=== PATIENT | male | born 1985 | race Caucasian/White ===

== ENCOUNTER 2016-04-21 10:21 | Emergency (ER) | payer BC ==
[~2016-04-21] VITALS: Ht 172.7 cm; Wt 85.0 kg
[2016-04-21 10:24] VITALS: BP 155/91; PULSE 81; RESP 22
[2016-04-21] MEDS ORDERED: XANA1TAB2 PO (10:38)
[2016-04-21 10:43] LABS: BASOPHIL # 0.1 TH/MM3 (0-0.2); BASOPHIL % 0.6 % (0.0-2.0); EOSINOPHIL # 0.2 TH/MM3 (0-0.4); EOSINOPHIL % 1.9 % (0.0-4.0); HEMATOCRIT 42.2 % (39.0-51.0); HEMO FLAGS DIFF FINAL; LYMPH % 21.1 % (9.0-44.0); LYMPHOCYTE # 2.3 TH/MM3 (1.0-4.8); MEAN CELL VOLUME 85.3 FL (80.0-100.0); MEAN CORPUSCULAR HEMOGLOBIN 29.7 PG (27.0-34.0); MEAN CORPUSCULAR HGB CONC 34.8 % (32.0-36.0); MONO % 12.2 % (0.0-8.0); NEUT % 64.2 % (16.0-70.0); PLATELET COUNT 291 TH/MM3 (150-450); RED BLOOD COUNT 4.94 MIL/MM3 (4.50-5.90); RED CELL DISTRIBUTION WIDTH 12.4 % (11.6-17.2); WHITE BLOOD COUNT 10.9 TH/MM3 (4.0-11.0)
[2016-04-21 10:56] LABS: ALT (GPT) 34 U/L (12-78); ANION GAP 6 MEQ/L (5-15); AST (GOT) 17 U/L (15-37); BICARBONATE 30.1 MEQ/L (21.0-32.0); BLOOD UREA NITROGEN 13 MG/DL (7-18); CHLORIDE 104 MEQ/L (98-107); GLOMERULAR FILTRATION RATE 67 ML/MIN (>89); POTASSIUM 3.3 MEQ/L (3.5-5.1); SODIUM (NA) 140 MEQ/L (136-145)
[2016-04-21 10:58] LABS: ALKALINE PHOSPHATASE 83 U/L (45-117)
[2016-04-21] MEDS ORDERED: SUBO8MIS SL (11:48)
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
[2016-04-21] MEDS: SULFAMETHOXAZOLE-TRIMETHOPRIM DS 800-160 MG TAB PO SCH ×2 (13:05→20:53)
[2016-04-21 14:24] LABS: AMPHETAMINE, URINE POS (NEG); BARBITURATES, URINE NEG (NEG); COCAINE, URINE POS (NEG)
[2016-04-21 16:20] VITALS: BP 107/58
[2016-04-21 16:26] VITALS: BP 178/81; PULSE 80; O2SAT 99
[2016-04-21 16:38] VITALS: BP 107/58
[2016-04-21 17:30] VITALS: BP 148/100; PULSE 76; RESP 18; TEMP 97.9; O2SAT 98
[2016-04-21] MEDS ORDERED: diphenhydrAMINE HCL 50 MG/ML VIAL IM ONE (21:15)
[2016-04-21] MEDS ORDERED: HALOPERIDOL LACTATE 5 MG/ML AMP IM ONE (21:15)
[2016-04-21] MEDS ORDERED: LORazepam 2 MG/ML VIAL IM ONE (21:15)
[2016-04-22 03:20] VITALS: BP 135/74; PULSE 61; RESP 18; TEMP 97.7; O2SAT 99
[2016-04-22 06:19] VITALS: BP 106/57; PULSE 80; RESP 18; TEMP 97.2; O2SAT 96
[2016-04-22 09:57] VITALS: BP 106/57; PULSE 80; RESP 18; O2SAT 96
== END 2016-04-22 10:41 ==
LOC: NEPA 10:21 → EDBD 10:21 → NEPJ 04-22 10:41
DX: F29 Unspecified psychosis not due to a substance or known physiological condition (principal); S09.93XA Unspecified injury of face, initial encounter; L03.116 Cellulitis of left lower limb; F17.220 Nicotine dependence, chewing tobacco, uncomplicated; F19.10 Other psychoactive substance abuse, uncomplicated; Y04.0XXA Assault by unarmed brawl or fight, initial encounter; Y93.9 Activity, unspecified; Y92.9 Unspecified place or not applicable; Y99.9 Unspecified external cause status
CPT/HCPCS: 70450; 70486; 72125; 80053; 80307; 80320; 85025; 99285; J1200; J1630; J2060